=== PATIENT | female | born 1945 | race Caucasian/White ===

== ENCOUNTER 2017-09-22 13:07 | Emergency (ER) | payer OTHER ==
[~2017-09-22] VITALS: Ht 165.1 cm; Wt 74.3 kg
[~2017-09-22 13:07] MED LIST: CEFDINIR300 MG PO; FLEXERIL5 MG PO; PERCOCET 5/31 TABLET PO; ULTRAM50 MG PO; ZOFRAN4 MG PO
[2017-09-22 14:08] LABS: HEMATOCRIT 37.2 % (36.0-46.0); MCH 30.8 PG (29.0-34.0); MCHC 34.1 G/DL (30.0-36.0); MCV 90.1 FL (83-99); MEAN PLAT.VOLUME 10.2 uM^3 (9.5-12.4); PLATELET COUNT 127 K/uL (156-360); RBC DIS.WIDTH-CV 12.1 % (11.8-14.6); RBC DIS.WIDTH-SD 39.8 % (39-53); RED BLOOD COUNT 4.13 M/uL (3.80-5.20)
[2017-09-22] MEDS ORDERED: KLOR-CON M1010 MEQ PO (14:14)
[2017-09-22] MEDS ORDERED: CLOPIDOGREL75 MG PO (14:14)
[2017-09-22] MEDS ORDERED: AMLODIPINE BESYL5 MG PO (14:14)
[2017-09-22] MEDS ORDERED: ATORVASTATIN CA40 MG PO (14:15)
[2017-09-22] MEDS ORDERED: LOSARTAN-HCTZ1 EAC1 PO (14:15)
[2017-09-22] MEDS ORDERED: ALENDRONATE SOD70 MG PO (14:16)
[2017-09-22] MEDS ORDERED: VITAMIN B-12250 MCG PO (14:16)
[2017-09-22] MEDS ORDERED: TRAZODONE HCL50 MG PO (14:16)
[2017-09-22 14:17] LABS: CHLORIDE 101 mEq/L (99-109); POTASSIUM 3.3 mEq/L (3.7-5.4); SODIUM 142 mEq/L (136-147)
[2017-09-22] MEDS ORDERED: FISH OIL 1,0001 EAC7 PO (14:17)
[2017-09-22 14:18] LABS: GLUCOSE 145 mg/dL (70-99)
[2017-09-22 14:20] LABS: ANION GAP 14 MEQ/L (2-14)
[2017-09-22 14:22] LABS: GFR ESTIMATE (CALCULATED) > 59 mL/min/
[2017-09-22 14:23] LABS: UREA NITROGEN (BUN) 19 mg/dL (9-23)
[2017-09-22 19:20] VITALS: BP 144/72
== END 2017-09-22 19:21 | disposition short-term general hospital (02) ==
LOC: EME 13:07
PROVIDERS: Nurse Practitioner Family
DX: S72.342A Displaced spiral fracture of shaft of left femur, initial encounter for closed fracture (principal); D69.6 Thrombocytopenia, unspecified; I10 Essential (primary) hypertension; W18.30XA Fall on same level, unspecified, initial encounter; Z86.73 Personal history of transient ischemic attack (TIA), and cerebral infarction without residual deficits; Z90.49 Acquired absence of other specified parts of digestive tract; Z90.710 Acquired absence of both cervix and uterus; Z88.5 Allergy status to narcotic agent; Z88.8 Allergy status to other drugs, medicaments and biological substances
CPT/HCPCS: 71010; 72170; 73552; 80048; 85027; 86850; 86900; 86901; 93005; 99281; 99285; J1170; J2270; J2405; J3010; J7050

== ENCOUNTER 2018-06-18 06:52 | Inpatient (IN) | payer OTHER ==
[~2018-06-18] VITALS: Ht 165.1 cm; Wt 80.0 kg
[~2018-06-18 06:52] MED LIST changes: +ALENDRONATE SOD70 MG PO; +AMLODIPINE BESYL5 MG PO; +ATORVASTATIN CA40 MG PO; +CALCIUM 600 +1 EAC9 PO; +CLOPIDOGREL75 MG PO; +CYANOCOBALAM1000 MCG PO; +FISH OIL 1,0001 EAC7 PO; +GINKGO BILOBA500 MG PO; +GREEN TEA CAPL1 EACH PO; +HYDROCHLOROTHIA25 MG PO; +KLOR-CON M1010 MEQ PO; +LIPITOR40 MG PO; +LOSARTAN-HCTZ1 EAC1 PO; +NORVASC5 MG PO; +PLAVIX75 MG PO; +TRAZODONE HCL50 MG PO; +VITAMIN B-12250 MCG PO
[2018-06-18 07:39] VITALS: BP 117/63
[2018-06-18 09:13] LABS: CHLORIDE 105 MEQ/L (99-109); CREATININE 0.6 MG/DL (0.6-1.3); GFR ESTIMATE (CALCULATED) > 59 mL/min/; GLUCOSE 109 mg/dL (70-99); POTASSIUM 3.5 MEQ/L (3.7-5.4); SODIUM 143 MEQ/L (136-147); UREA NITROGEN (BUN) 18 mg/dL (9-23)
[2018-06-18 13:51] VITALS: BP 109/55
[2018-06-18 13:51] LABS: HEMATOCRIT 32.7 % (36.0-46.0); HEMOGLOBIN 11.2 G/DL (11.9-15.5); MCV 89.8 FL (83-99)
[2018-06-18 16:13] VITALS: BP 93/51
[2018-06-18 19:56] VITALS: BP 100/53
[2018-06-18 23:40] VITALS: BP 99/54
[2018-06-19 03:55] VITALS: BP 105/57
[2018-06-19 06:44] LABS: HEMATOCRIT 30.8 % (36.0-46.0); HEMOGLOBIN 10.1 G/DL (11.9-15.5); MCV 90.6 FL (83-99)
[2018-06-19 07:04] LABS: CHLORIDE 104 MEQ/L (99-109); GLUCOSE 128 mg/dL (70-99); POTASSIUM 3.8 MEQ/L (3.7-5.4); SODIUM 141 MEQ/L (136-147); UREA NITROGEN (BUN) 27 mg/dL (9-23)
[2018-06-19 07:05] LABS: CREATININE 1.1 MG/DL (0.6-1.3); GFR ESTIMATE (CALCULATED) 52 mL/min/
[2018-06-19 07:56] VITALS: BP 103/51
[2018-06-19 12:09] VITALS: BP 123/60
[2018-06-19 16:00] VITALS: BP 130/53
[2018-06-19 19:48] VITALS: BP 109/56
[2018-06-20 00:30] VITALS: BP 119/63
[2018-06-20 08:00] VITALS: BP 127/60
[2018-06-20] MEDS ORDERED: ASPIR-LOW81 MG PO (08:30)
[2018-06-20] MEDS ORDERED: OXYCODONE HCL5 MG PO (08:31)
[2018-06-20 11:46] VITALS: BP 130/62
[2018-06-20 15:36] VITALS: BP 143/65
== END 2018-06-20 15:55 | disposition home health service (06) | DRG 470 ==
LOC: 3WEST 06:52 → 2SOUTH 06:52 → ENRESERV 12:50 → 2SOUTH 13:28 → 3WEST 13:46 → 2SOUTH 15:00 → 3WEST 06-20 15:55
PROVIDERS: Anesthesiology; Orthopaedic Surgery
PROC: 0SR904A Replacement of Right Hip Joint with Ceramic on Polyethylene Synthetic Substitute, Uncemented, Open Approach (ICD-10-PCS; principal; 2018-06-18)
DX: M16.11 Unilateral primary osteoarthritis, right hip (principal)
CPT/HCPCS: 80048; 85014; 85018; J0131; J0690; J1100; J1885; J2405; J2710; J2765; J3010; J7050; J7120; J7643; Q0175; S0020